=== PATIENT | female | born 1935 | race Caucasian/White ===

== ENCOUNTER 2018-01-16 18:52 | Emergency (ER) | payer MEDICARE ==
[~2018-01-16] VITALS: Ht 160 cm; Wt 77.1 kg
[2018-01-16] MEDS ORDERED: FLUT12AE INH (19:19)
[2018-01-16] MEDS ORDERED: POTA20TA14 PO (19:19)
[2018-01-16] MEDS ORDERED: TRIA1CAP3 PO (19:19)
[2018-01-16] MEDS ORDERED: FOLI20CA PO (19:19)
[2018-01-16] MEDS ORDERED: METH2.5T PO (19:19)
[2018-01-16] MEDS ORDERED: ALEN70TA5 PO (19:19)
[2018-01-16] MEDS ORDERED: FENO145T30 PO (19:19)
[2018-01-16] MEDS ORDERED: LEVO100T PO (19:19)
[2018-01-16] MEDS ORDERED: PLEASE ENTER ALLERGIES MC SCH (19:30)
[2018-01-16] MEDS ORDERED: LIDOCAINE 2%, 20ML SQ ONE (19:30)
[2018-01-16] MEDS ORDERED: DIPH,PERTUSS(ACELL),TET VAC/PF 0.5 ML IM-VACC ONE ×2 (19:30→19:38)
[2018-01-16] MEDS ORDERED: LIDOCAINE-MPF 2% ,5ML ONE (19:38)
[2018-01-16 21:31] VITALS: BP 136/84
== END 2018-01-16 22:02 | disposition home or self-care (01) ==
LOC: ED 21:05
DX: S61.011A Laceration without foreign body of right thumb without damage to nail, initial encounter (principal); S61.210A Laceration without foreign body of right index finger without damage to nail, initial encounter; Z88.1 Allergy status to other antibiotic agents; W01.0XXA Fall on same level from slipping, tripping and stumbling without subsequent striking against object, initial encounter; Y93.89 Activity, other specified; Y99.8 Other external cause status; Y92.89 Other specified places as the place of occurrence of the external cause
CPT/HCPCS: 12044; 90471; 90715; 99285; J3490